=== PATIENT | female | born 1950 | race Caucasian/White ===

== ENCOUNTER 2021-04-30 06:10 | Inpatient (IN) | payer OTHER ==
[2021-04-30] VITALS (7 sets, daily range): BP systolic 95–130; BP diastolic 54–82
[~2021-04-30] VITALS: Ht 154.9 cm; Wt 77.0 kg
[~2021-04-30 06:10] MED LIST: CLON1TAB10 PO; ESTR2TAB PO; FLUO40CA PO; TRAZ100T3 PO
[2021-04-30] MEDS ORDERED: fentaNYL CITRATE 100 MCG/2 ML VL ONE (06:58)
[2021-04-30] MEDS ORDERED: SODIUM CHLORIDE LOCK 10 ML ONE (06:59)
[2021-04-30] MEDS ORDERED: ONDANSETRON HCL 4 MG/2 ML VIAL ONE (06:59)
[2021-04-30] MEDS ORDERED: MIDAZOLAM HCL 2MG/2ML 2ml VIAL (1mg/ml) ONE (06:59)
[2021-04-30] MEDS ORDERED: BUPIVACAINE/DEXTROSE MPF 0.75% 2 ML AMP IT ONE (06:59)
[2021-04-30] MEDS ORDERED: EPINEPHrine HCL 1 MG/1 ML AMP ONE ×2 (06:59→08:37)
[2021-04-30] MEDS ORDERED: PROPOFOL 10 MG/ML 20 ML IV ONE ×2 (06:59→09:36)
[2021-04-30] MEDS ORDERED: MORPHINE SULF PF 2 MG/2 ML SYRG ONE (07:00)
[2021-04-30] MEDS ORDERED: TRANEXAMIC ACID 20 ML ONE (07:03)
[2021-04-30] MEDS ORDERED: TETRACAINE 1% INJ 2 ML VIAL IJ ONE (07:03)
[2021-04-30] MEDS ORDERED: ceFAZolin 1GM/50ML 50 ML IV ONE ×3 (07:09→22:32)
[2021-04-30] MEDS: VANCOMYCIN HCL 1000 MG VL ONE ×2 (07:28→10:00)
[2021-04-30] MEDS ORDERED: SUCCINYLCHOLINE CHLORIDE 20 MG/ML 10ML VIAL IV ONE (07:35)
[2021-04-30] MEDS ORDERED: LIDOCAINE 1% HCL (LOCAL ANESTH.) INJ 20ML MDV ONE (07:35)
[2021-04-30] MEDS ORDERED: MORPHINE SULFATE 4 MG/ML SYR/VIAL IV PRN (09:00)
[2021-04-30] MEDS ORDERED: diphenhdrAMINE HCL 50 MG/1 ML VL IV PRN (09:00)
[2021-04-30] MEDS ORDERED: HYDROmorphone HCL 2 MG/ML VL IV PRN ×2 (09:00→11:30)
[2021-04-30] MEDS ORDERED: NALOXONE HCL 0.4 MG/ML VIAL IV PRN (09:00)
[2021-04-30] MEDS ORDERED: clonazePAM 0.5 MG TAB PO ONE (10:30)
[2021-04-30 11:11] LABS: Basophils # (auto) 0.1 10 ^3/uL (0-0.2); Basophils % (auto) 0.5 % (0.0-2.0); Eosinophils # (auto) 0.2 10 ^3/uL (0-0.8); Eosinophils % (auto) 0.8 % (0.0-7.0); Hematocrit 32.4 % (36.0-46.0); Hemoglobin 10.8 g/dL (12.2-16.2); Lymphocytes # (auto) 1.6 10 ^3/uL (0.4-5.4); Lymphocytes % (auto) 8.2 % (10.0-50.0); Mean Corpuscular Hemoglobin 31.4 pg (28.0-32.0); Mean Corpuscular Hgb Conc. 33.5 g/dL (32.0-36.0); Mean Corpuscular Volume 93.7 fL (80.0-100.0); Monocytes # (auto) 0.5 10 ^3/uL (0-1.3); Monocytes % (auto) 2.7 % (0.0-12.0); Neutrophils # (auto) 17.4 10 ^3/uL (1.6-8.6); Neutrophils % (auto) 87.8 % (37.0-80.0); Nucleated Red Blood Cells % 0.1 %; Red Blood Cells 3.46 10^6/uL (4.0-5.20); Red Cell Distribution Width 14.1 % (11.8-14.3); White Blood Cell 19.9 10^3/uL (4.4-10.8)
[2021-04-30] MEDS ORDERED: SODIUM CHLORIDE 0.9% 1,000 ML IV SCH (11:30)
[2021-04-30] MEDS ORDERED: oxyCODONE HCL 5MG TAB PO PRN (11:30)
[2021-04-30] MEDS ORDERED: ONDANSETRON HCL 4 MG/2 ML VIAL IV PRN (11:30)
[2021-04-30 11:47] LABS: Calcium 7.8 mg/dL (8.5-10.1); Potassium 4.3 mmol/L (3.5-5.1)
[2021-04-30 11:49] LABS: BUN/Creatinine Ratio 17.1
[2021-04-30] MEDS: KETOROLAC TROMETH 30 MG/ML 1ML VIAL IV SCH ×2 (12:00→18:00)
[2021-04-30] MEDS: ACETAMINOPHEN 325 MG TAB PO SCH ×2 (12:00→18:00)
[2021-04-30] MEDS: PHENYLEPHRINE HCL 10 MG/ML VL IV SCH ×13 (12:15→14:45)
[2021-04-30] MEDS: CEFAZOLIN IV SCH ×2 (15:00→22:56)
[2021-04-30] MEDS: D5W 5% IV SCH ×2 (15:00→22:56)
[2021-04-30] MEDS: LACTATED RINGER'S 1,000 ML IV SCH (15:15)
[2021-04-30] MEDS ORDERED: traZODone HCL 50 MG TAB PO SCH (22:00)
[2021-05-01] VITALS (16 sets, daily range): BP systolic 86–146; BP diastolic 47–75
[2021-05-01] MEDS: LACTATED RINGER'S 1,000 ML IV SCH (01:15)
[2021-05-01] MEDS: oxyCODONE HCL 5MG TAB PO PRN ×2 (04:50→10:35)
[2021-05-01 05:49] LABS: Basophils # (auto) 0 10 ^3/uL (0-0.2); Basophils % (auto) 0.1 % (0.0-2.0); Eosinophils # (auto) 0 10 ^3/uL (0-0.8); Hematocrit 29.5 % (36.0-46.0); Hemoglobin 9.9 g/dL (12.2-16.2); Lymphocytes # (auto) 0.4 10 ^3/uL (0.4-5.4); Lymphocytes % (auto) 3.4 % (10.0-50.0); Mean Corpuscular Hemoglobin 31.8 pg (28.0-32.0); Mean Corpuscular Hgb Conc. 33.7 g/dL (32.0-36.0); Mean Corpuscular Volume 94.4 fL (80.0-100.0); Monocytes % (auto) 7.8 % (0.0-12.0); Neutrophils # (auto) 11.6 10 ^3/uL (1.6-8.6); Neutrophils % (auto) 88.7 % (37.0-80.0); Red Blood Cells 3.12 10^6/uL (4.0-5.20); Red Cell Distribution Width 14.2 % (11.8-14.3); White Blood Cell 13.1 10^3/uL (4.4-10.8)
[2021-05-01 06:01] LABS: Potassium 4.7 mmol/L (3.5-5.1)
[2021-05-01 06:09] LABS: BUN/Creatinine Ratio 15.1; Calcium 8.1 mg/dL (8.5-10.1)
[2021-05-01] MEDS: ACETAMINOPHEN 325 MG TAB PO SCH ×4 (06:16→18:00)
[2021-05-01] MEDS: KETOROLAC TROMETH 30 MG/ML 1ML VIAL IV SCH ×4 (06:16→18:00)
[2021-05-01] MEDS ORDERED: PHENYLEPHRINE HCL 10 MG/ML VL IV SCH (10:00)
[2021-05-01] MEDS ORDERED: ESTRADIOL 1 MG TAB PO SCH (10:00)
== END 2021-05-01 18:00 | disposition left against medical advice (07) | DRG 470 ==
LOC: SUR 06:10 → OVERFLOW 11:28 → TELE-WESTW 17:08
PROVIDERS: ADMIT Orthopaedic Surgery; ATTEND Orthopaedic Surgery
PROC: BQ10ZZZ Fluoroscopy of Right Hip (ICD-10-PCS; 2021-04-30)
PROC: 0SR906Z Replacement of Right Hip Joint with Oxidized Zirconium on Polyethylene Synthetic Substitute, Open Approach (ICD-10-PCS; principal; 2021-04-30 07:40)
DX: M16.11 Unilateral primary osteoarthritis, right hip (principal); Z20.822 Contact with and (suspected) exposure to COVID-19
CPT/HCPCS: 36415; 72170; 73501; 76001; 80048; 85025; 86850; 86900; 86901; 97110; 97116; 97530; G0378; J0171; J0330; J0690; J1885; J2001; J2250; J2405; J2704; J7060